=== PATIENT | male | born 1955 | race Caucasian/White ===

== ENCOUNTER 2022-05-06 06:01 | Day surgery (SDC) | payer MEDICARE, OTHER ==
[2022-05-05 10:06] VITALS: BMI 29.5
[~2022-05-06 06:01] MED LIST: EPINEPHrine 0.3 MG in Ophthalmic Irrigation Solution 500 ML IRR SCH
[2022-05-06] MEDS ORDERED: Phenylephrine 2.5% Ophth Soln 5 ML BOT ONE (06:48)
[2022-05-06] MEDS ORDERED: Cyclopentolate 1% Opth Drop 2 ML BOT ONE (06:48)
[2022-05-06] MEDS ORDERED: Midazolam HCl 2 mg/2 ml Vial ONE (06:53)
[2022-05-06] MEDS ORDERED: fentaNYL PF 100 MCG/2 ML SYRINGE ONE (06:53)
[2022-05-06] MEDS ORDERED: Maxitrol 0.1% Opth Oint 3.5 GM TUBE ONE (08:02)
[2022-05-06] MEDS ORDERED: Bupivacaine 0.75% 10 ML VIAL ONE (08:02)
[2022-05-06] MEDS ORDERED: PROPOFOL 200 MG/20 ML VIAL ONE (08:02)
[2022-05-06] MEDS ORDERED: Lidocaine 4% PF 5 ML AMP ONE (08:02)
[2022-05-06] MEDS ORDERED: Triamcinolone 40 MG/ML VIAL ONE (08:02)
== END 2022-05-06 09:03 | disposition home or self-care (01) ==
LOC: SDC 06:01
PROVIDERS: ATTEND Ophthalmology Retina Specialist
PROC: 08T53ZZ Resection of Left Vitreous, Percutaneous Approach (ICD-10-PCS; principal; 2022-05-06)
DX: H43.392 Other vitreous opacities, left eye (principal); I10 Essential (primary) hypertension; E78.5 Hyperlipidemia, unspecified; J44.9 Chronic obstructive pulmonary disease, unspecified; K31.84 Gastroparesis; N40.0 Benign prostatic hyperplasia without lower urinary tract symptoms; Z79.899 Other long term (current) drug therapy; Z88.0 Allergy status to penicillin; Z88.8 Allergy status to other drugs, medicaments and biological substances
CPT/HCPCS: J0171; J2250

== ENCOUNTER 2022-05-20 11:03 | Day surgery (SDC) | payer MEDICARE, OTHER ==
[2022-05-16 09:13] VITALS: BMI 29.6
[~2022-05-20 11:03] MED LIST changes: +Fentanyl 100 MCG/2 ML VIAL ONE; +Midazolam HCl 2 mg/2 ml Vial ONE; +PROPOFOL 20 ML ONE
[2022-05-20] MEDS ORDERED: Cyclopentolate 1% Opth Drop 2 ML BOT ONE (11:14)
[2022-05-20] MEDS ORDERED: Phenylephrine 2.5% Ophth Soln 5 ML BOT ONE (11:14)
[2022-05-20] MEDS ORDERED: Bupivacaine 0.75% 10 ML VIAL ONE (12:25)
[2022-05-20] MEDS ORDERED: Lidocaine 4% PF 5 ML AMP ONE (12:25)
[2022-05-20] MEDS ORDERED: Maxitrol 0.1% Opth Oint 3.5 GM TUBE ONE (12:25)
[2022-05-20] MEDS ORDERED: Triamcinolone 40 MG/ML VIAL ONE (12:25)
== END 2022-05-20 13:10 | disposition home or self-care (01) ==
LOC: SDC 11:03
PROVIDERS: ATTEND Ophthalmology Retina Specialist
PROC: 08T43ZZ Resection of Right Vitreous, Percutaneous Approach (ICD-10-PCS; principal; 2022-05-20)
DX: H43.391 Other vitreous opacities, right eye (principal); Z79.899 Other long term (current) drug therapy; Z88.0 Allergy status to penicillin; Z88.8 Allergy status to other drugs, medicaments and biological substances
CPT/HCPCS: J0171; J2250; J2704; J3010; J3301; J3490